=== PATIENT | female | born 1990 | race African-American/Black ===

== ENCOUNTER 2018-07-12 00:18 | Emergency (ER) | payer SELFPAY ==
[~2018-07-12] VITALS: Ht 170.2 cm; Wt 78.0 kg
[2018-07-12 00:28] VITALS: BP 144/68
== END 2018-07-12 01:45 | disposition left against medical advice (07) ==
LOC: ER 00:18
DX: Z53.21 Procedure and treatment not carried out due to patient leaving prior to being seen by health care provider (principal)